=== PATIENT | male | born 1940 | race Native Hawaiian/Other Pacific Islander ===

== ENCOUNTER 2019-04-07 21:05 | Emergency (ER) | payer OTHER ==
[~2019-04-07] VITALS: Ht 185.4 cm; Wt 81.6 kg
[2019-04-07] MEDS ORDERED: KETO2SHA7 TOP (21:50)
[2019-04-07] MEDS ORDERED: AMLODIPINE BESYLATE PO (21:50)
[2019-04-07] MEDS ORDERED: NAMENDA5 MG PO (21:51)
[2019-04-07] MEDS ORDERED: LEVO-T25 MCG PO (21:51)
[2019-04-07] MEDS ORDERED: METF500T PO (21:51)
[2019-04-07] MEDS ORDERED: TAMSULOSIN0.4 MG PO (21:52)
[2019-04-07] MEDS ORDERED: SERT50TA PO (21:52)
[2019-04-07] MEDS ORDERED: LISI5TAB10 PO (21:57)
[2019-04-08] MEDS ORDERED: FINGERSTIX (10:01)
== END 2019-04-08 00:55 | disposition other institution (70) ==
LOC: ED 21:05
DX: F03.91 Unspecified dementia, unspecified severity, with behavioral disturbance (principal); Z91.83 Wandering in diseases classified elsewhere; Z04.6 Encounter for general psychiatric examination, requested by authority
CPT/HCPCS: 99285